=== PATIENT | male | born 1985 | race American Indian/Alaskan Native ===

== ENCOUNTER 2025-05-23 08:10 | Emergency (ER) | payer SELFPAY ==
[2025-05-23 08:20] VITALS: BP 135/96; PULSE 109; RESP 20; TEMP 36.8; O2SAT 98; BMI 41.2
[2025-05-23 08:27] VITALS: PULSE 105; O2SAT 95
[2025-05-23 08:30] VITALS: BP 122/87; PULSE 104; O2SAT 95
[2025-05-23 09:00] VITALS: BP 123/76; PULSE 99; O2SAT 95
[2025-05-23 09:30] VITALS: BP 135/83; PULSE 90; O2SAT 96
--- NOTE | 2025-05-23 09:54 | ED.ALLEREA ---
HPI - Allergic Reaction General Chief complaint: Allergic Reaction Stated complaint: allergic reaction Time Seen by Provider: 05/23/25 09:40 Source: patient Mode of arrival: Ambulatory History of Present Illness HPI narrative: Two week history of hives after eating pork shrimp. Prior similar episode 5 years ago. Related Data Allergies Allergy/AdvReac Type Severity Reaction Status Date / Time No Known Drug Allergies Allergy Verified 05/23/25 08:21 Patient History Social History Smoking Status: Never smoker Smoking Status: Never smoker Exam Initial Vital Signs Initial Vital Signs: Vital Signs Temperature 98.2 F 05/23/25 08:20 Pulse Rate 109 H 05/23/25 08:20 Respiratory Rate 20 05/23/25 08:20 Blood Pressure 135/96 H 05/23/25 08:20 Pulse Oximetry 98 05/23/25 08:20 Oxygen Delivery Method Room Air 05/23/25 08:20 Course Vital Signs Vital signs: Vital Signs - 8 hr 05/23/25 08:20 05/23/25 08:27 05/23/25 08:30 Temperature 98.2 F Pulse Rate 109 H 105 H Respiratory Rate 20 Blood Pressure 135/96 H 122/87 Pulse Oximetry 98 95 Oxygen Delivery Method Room Air 05/23/25 08:30 05/23/25 09:00 05/23/25 09:00 Temperature Pulse Rate 104 H 99 H Respiratory Rate Blood Pressure 123/76 Pulse Oximetry 95 95 Oxygen Delivery Method 05/23/25 09:30 05/23/25 09:30 Temperature Pulse Rate 90 Respiratory Rate Blood Pressure 135/83 Pulse Oximetry 96 Oxygen Delivery Method Discharge Plan Departure Referrals: Miscellaneous,Doctor, [Primary Care Provider, Medical]
[2025-05-23 10:00] VITALS: BP 123/86; PULSE 98; O2SAT 96
== END 2025-05-23 10:07 | disposition home or self-care (01) ==
PROVIDERS: Emergency Provider Student in an Organized Health Care Education/Training Program
DX: R21 Rash and other nonspecific skin eruption (principal); Z91.014 Allergy to mammalian meats; Z91.013 Allergy to seafood
CPT/HCPCS: 99283